=== PATIENT | female | born 1995 | race Caucasian/White ===

== ENCOUNTER 2017-03-03 17:34 | Emergency (ER) | payer OTHER ==
[~2017-03-03] VITALS: Ht 170.2 cm; Wt 60.0 kg
[~2017-03-03 17:34] MED LIST: ADDERALL XR30 MG PO; AMOXICILLIN500 MG; AMOXICILLIN500 MG PO; AUGMENTIN875TAB PO; CEPHALEXIN500 MG PO; CHERATUSSIN PO; CIPROFLOXACN500 MG PO; DENIES CURRENT MEDS; DOXYCYCL HYC100 M3 PO; FLONASE NASAL50 MCG; FLOXIN OTIC0.3 % AS; KEFLEX500 MG PO; LAMICTAL25 MG OR; LORTAB 10 PO; MUCINEX600 MG PO; NAPROSYN500 MG PO; NO HOME MEDS; ORTHO-CYCLEN PO; PERCOCET 5/325M1 TAB OR; PREDNISONE20 MG OR; PROZAC20 M1 OR; ROBITUSSIN AC10 ML PO; SPRINTEC 2828 DAY OR; TESSALON PER100 MG PO; TRILEPTAL600 M1 OR; ULTRAM50 M1 OR; VYVANSE30 MG OR; ZITHROMAX250 MG PO; ZOLOFT100 MG OR
[2017-03-03] MEDS ORDERED: PREDNISONE10 MG PO (18:29)
[2017-03-03] MEDS ORDERED: BENADRYL 50MG C50 MG PO (18:29)
[2017-03-03 19:01] VITALS: BP 136/90
== END 2017-03-03 19:00 | disposition home or self-care (01) | DRG 918 ==
LOC: ED 17:34
DX: T63.441A Toxic effect of venom of bees, accidental (unintentional), initial encounter (principal); R22.31 Localized swelling, mass and lump, right upper limb

== ENCOUNTER 2017-05-02 23:32 | Emergency (ER) | payer OTHER ==
[~2017-05-02] VITALS: Ht 170.2 cm; Wt 80.0 kg
[~2017-05-02 23:32] MED LIST changes: +BENADRYL 50MG C50 MG PO; +PREDNISONE10 MG PO
[2017-05-03 00:33] LABS: HEMATOCRIT 38.7 % (37.0-47.0); HEMOGLOBIN 12.9 g/dl (12.0-16.0); IMMATURE GRANULOCYTES 0.4 % (0.0-1.0); MEAN CELL VOLUME 67.5 fL CALC (80.0-100.0); MEAN CORPUSCULAR HGB 22.5 pG CALC (26.0-32.0); MEAN CORPUSCULAR HGB CONC 33.3 g/L CALC (32.0-36.0); NEUT# 6.8 thou/uL (2.00-7.15); RED BLOOD COUNT 5.73 mill/uL (4.20-5.60); RED CELL DISTRI WIDTH 17.2 % (11.5-15.5)
[2017-05-03 00:36] LABS: INFLUENZA A NONE DETECTED (NONE DETECT); INFLUENZA B NONE DETECTED (NONE DETECT)
[2017-05-03 00:52] LABS: ALBUMIN 4.1 g/dL (3.2-5.0); ALKALINE PHOSPHATASE 81 u/l (38-126); ANION GAP 17 (6-22 (CALC)); BILIRUBIN, TOTAL 0.6 mg/dL (0.0-1.4); BUN 11 mg/dL (7-17); BUN/CREATININE RATIO 21 (12-20 (CALC)); CALCIUM 9.6 mg/dL (8.4-10.2); CARBON DIOXIDE 21 mmol/l (22-30); CHLORIDE 101 mmol/l (95-108); CREATININE 0.5 mg/dL (0.5-1.0); GFR > 60 ML/MIN (>=60 (CALC)); GFR FOR AFR.AMER. > 60 ML/MIN (>=60 (CALC)); GLUCOSE 93 mg/dL (65-105); POTASSIUM 3.6 mmol/l (3.5-5.1); SGOT/AST 25 u/l (14-36); SGPT/ALT 38 u/l (9-52); SODIUM 137 mmol/l (137-146); TOTAL PROTEIN 6.9 g/dL (6.3-8.2)
[2017-05-03] MEDS ORDERED: AMOXICILLIN500 MG PO (01:11)
[2017-05-03] MEDS ORDERED: ROBITUSSIN200 MG/10 PO (01:11)
[2017-05-03 01:20] VITALS: BP 111/59
== END 2017-05-03 01:20 | disposition home or self-care (01) | DRG 781 ==
LOC: ED 23:32
PROVIDERS: Emergency Medicine
DX: O26.891 Other specified pregnancy related conditions, first trimester (principal); J06.9 Acute upper respiratory infection, unspecified; R05 Cough; Z3A.12 12 weeks gestation of pregnancy

== ENCOUNTER 2017-05-09 01:45 | Emergency (ER) | payer OTHER ==
[~2017-05-09] VITALS: Ht 170.2 cm; Wt 81.0 kg
[~2017-05-09 01:45] MED LIST changes: +ROBITUSSIN200 MG/10 PO
[2017-05-09 04:06] LABS: HEMATOCRIT 36.6 % (37.0-47.0); HEMOGLOBIN 12.1 g/dl (12.0-16.0); IMMATURE GRANULOCYTES 0.4 % (0.0-1.0); MEAN CELL VOLUME 68.4 fL CALC (80.0-100.0); MEAN CORPUSCULAR HGB 22.6 pG CALC (26.0-32.0); MEAN CORPUSCULAR HGB CONC 33.1 g/L CALC (32.0-36.0); NEUT# 7.21 thou/uL (2.00-7.15); RED BLOOD COUNT 5.35 mill/uL (4.20-5.60); RED CELL DISTRI WIDTH 17.7 % (11.5-15.5); URINE BILIRUBIN - DIPSTICK NEGATIVE (NEGATIVE); URINE BLOOD DIPSTICK LARGE (NEGATIVE); URINE CLARITY CLEAR; URINE COLOR YELLOW; URINE GLUCOSE - DIPSTICK NEGATIVE (NEGATIVE); URINE KETONE NEGATIVE (NEGATIVE); URINE LEUK ESTERASE NEGATIVE (NEGATIVE); URINE NITRITE - DIPSTICK NEGATIVE (Negative); URINE PROTEIN - DIPSTICK NEGATIVE (NEG-TRACE); URINE SPECIFIC GRAVITY 1.015; URINE UROBILINOGEN - DIPSTICK 0.2 E.U./dL (0.2)
[2017-05-09 04:22] LABS: ALBUMIN 3.8 g/dL (3.2-5.0); ALKALINE PHOSPHATASE 53 u/l (38-126); ANION GAP 16 (6-22 (CALC)); BILIRUBIN, TOTAL 0.4 mg/dL (0.0-1.4); BUN 6 mg/dL (7-17); BUN/CREATININE RATIO 14 (12-20 (CALC)); CARBON DIOXIDE 20 mmol/l (22-30); CHLORIDE 109 mmol/l (95-108); CREATININE 0.4 mg/dL (0.5-1.0); GFR > 60 ML/MIN (>=60 (CALC)); GFR FOR AFR.AMER. > 60 ML/MIN (>=60 (CALC)); GLUCOSE 96 mg/dL (65-105); SGOT/AST 16 u/l (14-36); SGPT/ALT 28 u/l (9-52); SODIUM 141 mmol/l (137-146); TOTAL PROTEIN 6.3 g/dL (6.3-8.2)
[2017-05-09 04:34] LABS: URINE SQUAMOUS EPITHELIAL CELL FEW EPI/hpf (0-FEW); URINE WBC 0-2 WBC/hpf (0-5)
[2017-05-09 04:39] LABS: BETA-HCG, QUANT(RESULT NUMBER) 11203 mIU/mL
[2017-05-09 07:00] VITALS: BP 132/72
== END 2017-05-09 07:15 | disposition home or self-care (01) | DRG 778 ==
LOC: ED 01:45
PROVIDERS: Emergency Medicine
DX: O20.0 Threatened abortion (principal); Z3A.13 13 weeks gestation of pregnancy

== ENCOUNTER 2017-07-25 17:00 | Emergency (ER) | payer OTHER ==
[~2017-07-25] VITALS: Ht 170.2 cm; Wt 81.0 kg
[2017-07-25 17:09] VITALS: BP 125/87
[2017-07-25] MEDS ORDERED: AMOXICILLIN500 MG PO (17:30)
== END 2017-07-25 17:53 | disposition home or self-care (01) | DRG 153 ==
LOC: ED 17:00
DX: J02.0 Streptococcal pharyngitis (principal); F17.210 Nicotine dependence, cigarettes, uncomplicated; R09.81 Nasal congestion; R50.9 Fever, unspecified

== ENCOUNTER 2017-10-10 11:31 | Emergency (ER) | payer OTHER ==
[~2017-10-10] VITALS: Ht 170.2 cm; Wt 86.0 kg
[2017-10-10] MEDS ORDERED: NAPROSYN500 MG PO (16:09)
[2017-10-10 16:10] VITALS: BP 131/81
== END 2017-10-10 16:10 | disposition home or self-care (01) | DRG 556 ==
LOC: ED 11:31
DX: M25.511 Pain in right shoulder (principal); S80.12XA Contusion of left lower leg, initial encounter; S80.11XA Contusion of right lower leg, initial encounter; S30.1XXA Contusion of abdominal wall, initial encounter; S00.11XA Contusion of right eyelid and periocular area, initial encounter; M54.5 Low back pain; F17.210 Nicotine dependence, cigarettes, uncomplicated; V59.50XA Passenger in pick-up truck or van injured in collision with unspecified motor vehicles in traffic accident, initial encounter

== ENCOUNTER 2017-12-03 17:36 | Emergency (ER) | payer OTHER ==
[~2017-12-03] VITALS: Ht 170.2 cm; Wt 83.4 kg
[2017-12-03] MEDS ORDERED: PROVENTIL108 MCG/AC IN (18:29)
[2017-12-03] MEDS ORDERED: ZITHROMAX250 MG PO (18:29)
[2017-12-03 18:57] VITALS: BP 126/81
== END 2017-12-03 18:57 | disposition home or self-care (01) | DRG 203 ==
LOC: ED 17:36
DX: J40 Bronchitis, not specified as acute or chronic (principal); F17.210 Nicotine dependence, cigarettes, uncomplicated; R05 Cough; R09.81 Nasal congestion; R11.10 Vomiting, unspecified; R19.7 Diarrhea, unspecified; R50.9 Fever, unspecified

== ENCOUNTER 2018-02-21 15:26 | Emergency (ER) | payer OTHER ==
[~2018-02-21] VITALS: Ht 170.2 cm; Wt 74.4 kg
[~2018-02-21 15:26] MED LIST changes: +PROVENTIL108 MCG/AC IN
[2018-02-21 16:09] LABS: URINE BILIRUBIN - DIPSTICK NEGATIVE (NEGATIVE); URINE BLOOD DIPSTICK SMALL (NEGATIVE); URINE CLARITY HAZY; URINE COLOR YELLOW; URINE GLUCOSE - DIPSTICK NEGATIVE (NEGATIVE); URINE KETONE NEGATIVE (NEGATIVE); URINE LEUK ESTERASE NEGATIVE (NEGATIVE); URINE NITRITE - DIPSTICK NEGATIVE (Negative); URINE PH 5.5 (4.5-8.0); URINE PROTEIN - DIPSTICK NEGATIVE (NEG-TRACE); URINE SPECIFIC GRAVITY >=1.030; URINE UROBILINOGEN - DIPSTICK 0.2 E.U./dL (0.2)
[2018-02-21 16:17] LABS: URINE SQUAMOUS EPITHELIAL CELL MANY EPI/hpf (0-FEW)
[2018-02-21] MEDS ORDERED: ZOFRAN4 MG/TAB PO (17:00)
[2018-02-21 17:30] VITALS: BP 131/85
== END 2018-02-21 17:30 | disposition home or self-care (01) | DRG 392 ==
LOC: ED 15:26
DX: R11.2 Nausea with vomiting, unspecified (principal); R19.7 Diarrhea, unspecified

== ENCOUNTER 2018-07-31 09:05 | Emergency (ER) | payer OTHER ==
[~2018-07-31] VITALS: Ht 170.2 cm; Wt 77.0 kg
[~2018-07-31 09:05] MED LIST changes: +ZOFRAN4 MG/TAB PO
[2018-07-31 10:12] LABS: INFLUENZA A NONE DETECTED (NONE DETECT); INFLUENZA B NONE DETECTED (NONE DETECT)
[2018-07-31] MEDS ORDERED: ZOFRAN ODT4 MG PO (10:21)
[2018-07-31 10:30] VITALS: BP 127/74
== END 2018-07-31 10:50 | disposition home or self-care (01) | DRG 866 ==
LOC: ED 09:05
PROVIDERS: Emergency Medicine
DX: B34.9 Viral infection, unspecified (principal); F17.210 Nicotine dependence, cigarettes, uncomplicated

== ENCOUNTER 2018-11-01 17:11 | Emergency (ER) | payer OTHER ==
[~2018-11-01] VITALS: Ht 170.2 cm; Wt 90.0 kg
[~2018-11-01 17:11] MED LIST changes: +ZOFRAN ODT4 MG PO
[2018-11-01] MEDS ORDERED: ZPAK PO (17:28)
[2018-11-01] MEDS ORDERED: TESSALON PER100 MG PO (17:28)
[2018-11-01 17:32] VITALS: BP 139/82
== END 2018-11-01 17:32 | disposition home or self-care (01) | DRG 204 ==
LOC: ED 17:11
DX: R05 Cough (principal); J02.9 Acute pharyngitis, unspecified; F17.210 Nicotine dependence, cigarettes, uncomplicated

== ENCOUNTER 2019-04-24 07:43 | Emergency (ER) | payer OTHER ==
[~2019-04-24] VITALS: Ht 170.2 cm; Wt 88.6 kg
[~2019-04-24 07:43] MED LIST changes: +ZPAK PO
[2019-04-24 08:27] LABS: HEMOGLOBIN 13.8 g/dl (12.0-16.0); IMMATURE GRANULOCYTES 0.4 % (0.0-5.0); MEAN CELL VOLUME 68.9 fL CALC (80.0-100.0); MEAN CORPUSCULAR HGB 21.9 pG CALC (26.0-32.0); MEAN CORPUSCULAR HGB CONC 31.8 g/L CALC (32.0-36.0); NEUT# 10.42 thou/uL (2.00-7.15); RED BLOOD COUNT 6.3 mill/uL (4.20-5.60)
[2019-04-24 08:28] LABS: HEMATOCRIT 43.4 % (37.0-47.0)
[2019-04-24 08:38] LABS: ALBUMIN 4.5 g/dL (3.2-5.0); ALKALINE PHOSPHATASE 67 u/l (38-126); ANION GAP 16 (6-22 (CALC)); BILIRUBIN, TOTAL 0.8 mg/dL (0.0-1.4); BUN 16 mg/dL (7-17); BUN/CREATININE RATIO 25 (12-20 (CALC)); CARBON DIOXIDE 23 mmol/l (22-30); CHLORIDE 103 mmol/l (95-108); CREATININE 0.6 mg/dL (0.5-1.0); GFR > 60 ML/MIN (>=60 (CALC)); GFR FOR AFR.AMER. > 60 ML/MIN (>=60 (CALC)); LIPASE 26 u/l (23-300); SGOT/AST 23 u/l (14-36); SODIUM 138 mmol/l (137-146); TOTAL PROTEIN 7.3 g/dL (6.3-8.2)
[2019-04-24] MEDS ORDERED: ONDANSETRON4 MG PO ×2 (09:26→09:41)
[2019-04-24 09:32] LABS: URINE BILIRUBIN - DIPSTICK NEGATIVE (NEGATIVE); URINE BLOOD DIPSTICK NEGATIVE (NEGATIVE); URINE COLOR YELLOW; URINE GLUCOSE - DIPSTICK NEGATIVE (NEGATIVE); URINE KETONE NEGATIVE (NEGATIVE); URINE LEUK ESTERASE NEGATIVE (NEGATIVE); URINE NITRITE - DIPSTICK NEGATIVE (Negative); URINE PH 5.5 (4.5-8.0); URINE PROTEIN - DIPSTICK NEGATIVE (NEG-TRACE); URINE SPECIFIC GRAVITY >=1.030; URINE UROBILINOGEN - DIPSTICK 0.2 E.U./dL (0.2)
[2019-04-24 10:10] VITALS: BP 109/53
== END 2019-04-24 10:10 | disposition home or self-care (01) | DRG 392 ==
LOC: ED 07:43
PROVIDERS: Family Medicine
DX: K52.9 Noninfective gastroenteritis and colitis, unspecified (principal); F17.210 Nicotine dependence, cigarettes, uncomplicated

== ENCOUNTER 2019-09-07 19:04 | Emergency (ER) | payer OTHER ==
[~2019-09-07] VITALS: Ht 170.2 cm; Wt 86.0 kg
[~2019-09-07 19:04] MED LIST changes: +ONDANSETRON4 MG PO
[2019-09-07] MEDS ORDERED: AMOXICILLIN500 MG PO (21:06)
[2019-09-07 21:15] VITALS: BP 116/67
== END 2019-09-07 21:15 | disposition home or self-care (01) | DRG 153 ==
LOC: ED 19:04
DX: J02.9 Acute pharyngitis, unspecified (principal); F17.210 Nicotine dependence, cigarettes, uncomplicated

== ENCOUNTER 2019-12-21 | Emergency (ER) | payer OTHER ==
[2019-12-21 20:37] LABS: IMMATURE GRANULOCYTES 0.3 % (0.0-5.0); MEAN CELL VOLUME 69.8 fL CALC (80.0-100.0); MEAN CORPUSCULAR HGB CONC 31.6 g/dL CAL (32.0-36.0); NEUT# 4.97 thou/uL (2.00-7.15); RED BLOOD COUNT 5.36 mill/uL (4.20-5.60); RED CELL DISTRI WIDTH 17.4 % (11.5-15.5)
[2019-12-21 20:38] LABS: HEMATOCRIT 37.4 % (37.0-47.0); HEMOGLOBIN 11.8 g/dl (12.0-16.0)
[2019-12-21 20:49] LABS: ALKALINE PHOSPHATASE 52 u/l (38-126); AMYLASE 50 u/l (30-110); ANION GAP 12 (6-22 (CALC)); BILIRUBIN, TOTAL 0.5 mg/dL (0.0-1.4); BUN 15 mg/dL (7-17); BUN/CREATININE RATIO 21 (12-20 (CALC)); CARBON DIOXIDE 24 mmol/l (22-30); CHLORIDE 108 mmol/l (95-108); CREATININE 0.7 mg/dL (0.5-1.0); GFR > 60 ML/MIN (>=60 (CALC)); GFR FOR AFR.AMER. > 60 ML/MIN (>=60 (CALC)); LIPASE 75 u/l (23-300); POTASSIUM 4.3 mmol/l (3.5-5.1); SGOT/AST 36 u/l (14-36); SODIUM 140 mmol/l (137-146); TOTAL PROTEIN 6.8 g/dL (6.3-8.2)
[2019-12-21] MEDS ORDERED: PEPCID20 MG PO (21:05)
== END 2019-12-21 22:30 | disposition home or self-care (01) | DRG 392 ==
PROVIDERS: Family Medicine
DX: K21.9 Gastro-esophageal reflux disease without esophagitis (principal); F17.200 Nicotine dependence, unspecified, uncomplicated

== ENCOUNTER 2020-01-16 | Emergency (ER) | payer OTHER ==
[~2020-01-16] MED LIST changes: +PEPCID20 MG PO
[2020-01-16 21:34] LABS: URINE BILIRUBIN - DIPSTICK NEGATIVE (NEGATIVE); URINE BLOOD DIPSTICK SMALL (NEGATIVE); URINE COLOR YELLOW; URINE GLUCOSE - DIPSTICK NEGATIVE (NEGATIVE); URINE KETONE NEGATIVE (NEGATIVE); URINE LEUK ESTERASE NEGATIVE (NEGATIVE); URINE PH 5.5 (4.5-8.0); URINE PROTEIN - DIPSTICK NEGATIVE (NEG-TRACE); URINE SPECIFIC GRAVITY >=1.030; URINE UROBILINOGEN - DIPSTICK 0.2 E.U./dL (0.2)
[2020-01-16 21:36] LABS: URINE NITRITE - DIPSTICK POSITIVE (Negative)
[2020-01-16 21:45] LABS: URINE RBC 0-2 RBC/hpf (0-5); URINE SQUAMOUS EPITHELIAL CELL MODERATE EPI/hpf (0-FEW)
[2020-01-16] MEDS ORDERED: CEPHALEXIN500 MG PO (21:49)
== END 2020-01-16 22:00 | disposition home or self-care (01) | DRG 690 ==
PROVIDERS: Emergency Medicine
DX: N39.0 Urinary tract infection, site not specified (principal); B96.20 Unspecified Escherichia coli [E. coli] as the cause of diseases classified elsewhere; F17.210 Nicotine dependence, cigarettes, uncomplicated

== ENCOUNTER 2020-01-27 18:41 | Emergency (ER) | payer OTHER ==
[2020-01-27] MEDS ORDERED: MOTRIN400 MG/TAB PO (21:42)
[2020-01-27 21:50] VITALS: BP 131/77
== END 2020-01-27 21:50 | disposition home or self-care (01) | DRG 605 ==
LOC: ED 18:41
DX: S20.211A Contusion of right front wall of thorax, initial encounter (principal); F17.210 Nicotine dependence, cigarettes, uncomplicated; W16.212A Fall in (into) filled bathtub causing other injury, initial encounter; Y93.E1 Activity, personal bathing and showering; Y92.002 Bathroom of unspecified non-institutional (private) residence as the place of occurrence of the external cause

== ENCOUNTER 2021-02-22 12:54 | Emergency (ER) | payer SELFPAY ==
[~2021-02-22] VITALS: Ht 167.6 cm; Wt 90.9 kg
[~2021-02-22 12:54] MED LIST changes: +MOTRIN400 MG/TAB PO
[2021-02-22] MEDS ORDERED: SILVADENE1 % EX (13:18)
[2021-02-22 13:38] VITALS: BP 119/83
== END 2021-02-22 15:40 | disposition home or self-care (01) | DRG 935 ==
LOC: ED 12:54
PROC: 2W2CX4Z Dressing of Right Lower Arm using Bandage (ICD-10-PCS; principal; 2021-02-22)
DX: T22.211A Burn of second degree of right forearm, initial encounter (principal); K21.9 Gastro-esophageal reflux disease without esophagitis; F17.200 Nicotine dependence, unspecified, uncomplicated; X15.3XXA Contact with hot saucepan or skillet, initial encounter; Y93.G3 Activity, cooking and baking; Y92.000 Kitchen of unspecified non-institutional (private) residence as the place of occurrence of the external cause

== ENCOUNTER 2021-03-27 15:34 | Emergency (ER) | payer SELFPAY ==
[~2021-03-27] VITALS: Ht 167.6 cm; Wt 90.0 kg
[~2021-03-27 15:34] MED LIST changes: +SILVADENE1 % EX
[2021-03-30 13:50] VITALS: BP 126/63
== END 2021-03-28 19:00 | disposition left against medical advice (07) | DRG 951 ==
LOC: ED 15:34 → LWOBS 16:57 → ED 03-28 19:00
DX: Z91.19 Patient's noncompliance with other medical treatment and regimen (principal)

== ENCOUNTER 2022-10-23 21:41 | Emergency (ER) | payer SELFPAY ==
[~2022-10-23] VITALS: Ht 167.6 cm; Wt 81.6 kg
[2022-10-23 22:00] VITALS: BP 113/73
[2022-10-23 22:15] VITALS: BP 110/70
[2022-10-23 22:30] VITALS: BP 112/64
[2022-10-23 22:45] VITALS: BP 99/57
[2022-10-23 23:00] VITALS: BP 97/58
[2022-10-23 23:51] LABS: URINE BILIRUBIN - DIPSTICK NEGATIVE (NEGATIVE); URINE BLOOD DIPSTICK MODERATE (NEGATIVE); URINE COLOR YELLOW; URINE GLUCOSE - DIPSTICK NEGATIVE (NEGATIVE); URINE KETONE NEGATIVE (NEGATIVE); URINE LEUK ESTERASE NEGATIVE (NEGATIVE); URINE PH 6.5 (4.5-8.0); URINE PROTEIN - DIPSTICK NEGATIVE (NEG-TRACE); URINE SPECIFIC GRAVITY 1.015; URINE UROBILINOGEN - DIPSTICK 0.2 E.U./dL (0.2)
[2022-10-23 23:56] LABS: URINE NITRITE - DIPSTICK NEGATIVE (Negative)
[2022-10-24 00:17] LABS: URINE SQUAMOUS EPITHELIAL CELL FEW EPI/hpf (0-FEW)
[2022-10-24] MEDS ORDERED: ORPHENADRINE100 MG PO (00:22)
[2022-10-24] MEDS ORDERED: VOLTAREN75 MG PO (00:22)
[2022-10-24 00:49] VITALS: BP 97/58
== END 2022-10-24 01:06 | disposition home or self-care (01) | DRG 563 ==
LOC: ED 21:41
PROVIDERS: Family Medicine
DX: S39.012A Strain of muscle, fascia and tendon of lower back, initial encounter (principal); K21.9 Gastro-esophageal reflux disease without esophagitis; F17.290 Nicotine dependence, other tobacco product, uncomplicated; X58.XXXA Exposure to other specified factors, initial encounter

== ENCOUNTER 2023-04-18 17:12 | Emergency (ER) | payer SELFPAY ==
[~2023-04-18 17:12] MED LIST changes: +ORPHENADRINE100 MG PO; +VOLTAREN75 MG PO
== END 2023-04-18 20:15 | disposition left against medical advice (07) | DRG 951 ==
LOC: ED 17:12 → LWOBS 20:15
DX: Z53.21 Procedure and treatment not carried out due to patient leaving prior to being seen by health care provider (principal)